=== PATIENT | male | born 1955 | race Caucasian/White ===

== ENCOUNTER 2017-08-22 11:02 | Outpatient (CLI) | payer OTHER | END 2017-08-22 15:36 | disposition home or self-care (01) | LOC: SONOGRAMA 11:02 | DX: M25.522 Pain in left elbow (principal) ==

== ENCOUNTER 2017-08-22 11:58 | Outpatient (CLI) | payer OTHER | END 2017-08-22 15:37 | disposition home or self-care (01) | LOC: RAD 11:58 | DX: M25.522 Pain in left elbow (principal) ==

== ENCOUNTER → 2017-10-03 | Outpatient (CLI) | payer OTHER | END | disposition home or self-care (01) | LOC: RAD 10:05 | DX: R10.9 Unspecified abdominal pain (principal) ==

== ENCOUNTER 2017-10-22 12:21 | Outpatient (CLI) | payer OTHER | END 2017-10-22 12:29 | disposition home or self-care (01) | LOC: LAB 12:21 | DX: R97.21 Rising PSA following treatment for malignant neoplasm of prostate (principal); N20.0 Calculus of kidney ==

== ENCOUNTER 2017-11-12 10:43 | Outpatient (CLI) | payer OTHER | END 2017-11-12 11:00 | disposition home or self-care (01) | LOC: RAD 10:43 → LAB 10:43 → RAD 10:53 → LAB 10:53 → RAD 11:00 | DX: N20.0 Calculus of kidney (principal) ==

== ENCOUNTER 2017-11-18 10:43 | Outpatient (CLI) | payer OTHER | END 2017-11-18 11:00 | disposition home or self-care (01) | LOC: LAB 10:43 | DX: N20.1 Calculus of ureter (principal) ==

== ENCOUNTER 2018-01-06 11:14 | Outpatient (CLI) | payer OTHER | END 2018-01-06 11:33 | disposition home or self-care (01) | LOC: NUCLEAR 11:14 | DX: I82.403 Acute embolism and thrombosis of unspecified deep veins of lower extremity, bilateral (principal) ==

== ENCOUNTER 2018-01-17 09:17 | Outpatient (CLI) | payer OTHER | END 2018-01-17 17:00 | disposition home or self-care (01) | LOC: SONOGRAMA 09:17 | DX: G57.82 Other specified mononeuropathies of left lower limb (principal) | CPT/HCPCS: 73718 ==

== ENCOUNTER 2018-01-17 14:51 | Outpatient (CLI) | payer OTHER | END 2018-01-17 15:08 | disposition home or self-care (01) | LOC: LAB 14:51 | DX: M79.1 Myalgia (principal) ==

== ENCOUNTER 2019-01-12 10:19 | Outpatient (CLI) | payer OTHER | END 2019-01-13 10:44 | disposition home or self-care (01) | LOC: TOM 10:19 | DX: N20.0 Calculus of kidney (principal) ==

== ENCOUNTER 2019-01-12 11:00 | Outpatient (CLI) | payer OTHER | END 2019-01-12 11:13 | disposition home or self-care (01) | LOC: LAB 11:00 | DX: R53.83 Other fatigue (principal); E29.1 Testicular hypofunction; G47.09 Other insomnia; N53.8 Other male sexual dysfunction ==

== ENCOUNTER → 2019-12-16 | Outpatient (CLI) | payer OTHER | END | disposition home or self-care (01) | LOC: MRI 08:56 | PROVIDERS: ATTEND Family Medicine | DX: M54.5 Low back pain (principal); M54.6 Pain in thoracic spine | CPT/HCPCS: 72146; 72148 ==

== ENCOUNTER 2020-01-04 15:54 | Outpatient (CLI) | payer OTHER | END 2020-01-04 18:00 | disposition home or self-care (01) | LOC: LAB 15:54 | PROVIDERS: ATTEND Radiology Diagnostic Radiology | DX: Z03.818 Encounter for observation for suspected exposure to other biological agents ruled out (principal); Z20.828 Contact with and (suspected) exposure to other viral communicable diseases ==

== ENCOUNTER → 2020-01-04 | Outpatient (CLI) | payer OTHER | END | disposition home or self-care (01) | LOC: RAD 15:48 | PROVIDERS: ATTEND Family Medicine | DX: N20.0 Calculus of kidney (principal) ==

== ENCOUNTER 2020-04-05 12:51 | Outpatient (CLI) | payer OTHER | END 2020-04-05 12:59 | disposition home or self-care (01) | LOC: LAB 12:51 | DX: F31.81 Bipolar II disorder (principal) ==

== ENCOUNTER 2021-06-13 09:00 | Outpatient (CLI) | payer OTHER | END 2021-06-13 09:30 | disposition home or self-care (01) | LOC: ASH CLINIC 09:00 | PROVIDERS: ATTEND Radiology Diagnostic Radiology | DX: U07.1 COVID-19 (principal); Z23 Encounter for immunization ==

== ENCOUNTER 2022-07-31 14:19 | Outpatient (CLI) | payer OTHER | END 2022-07-31 14:20 | disposition home or self-care (01) | LOC: LAB 14:19 | PROVIDERS: ATTEND Family Medicine | DX: N40.0 Benign prostatic hyperplasia without lower urinary tract symptoms (principal); D50.8 Other iron deficiency anemias; R73.01 Impaired fasting glucose; E03.8 Other specified hypothyroidism; Z12.11 Encounter for screening for malignant neoplasm of colon; E55.9 Vitamin D deficiency, unspecified; N39.0 Urinary tract infection, site not specified; Z12.5 Encounter for screening for malignant neoplasm of prostate; E29.1 Testicular hypofunction; N52.9 Male erectile dysfunction, unspecified; N20.0 Calculus of kidney ==

== ENCOUNTER 2022-07-31 15:09 | Outpatient (CLI) | payer OTHER | END 2022-07-31 15:30 | disposition home or self-care (01) | LOC: SONOGRAMA 15:09 | PROVIDERS: ATTEND Urology | DX: R22.9 Localized swelling, mass and lump, unspecified (principal); N20.1 Calculus of ureter ==